=== PATIENT | female | born 1975 | race Hispanic/Latino ===

== ENCOUNTER 2016-12-13 12:01 | Inpatient (IN) | payer MEDICAID ==
[2016-12-13] MEDS ORDERED: LACTATED RINGERS 500 ML IV ONE (12:20)
[2016-12-13] MEDS ORDERED: LACTATED RINGERS 1,000 ML ONE ×2 (13:16→17:53)
[2016-12-13 13:35] LABS: Basophils % (Auto) 0.3 % (0.0-1.8); Eosinophils % (Auto) 0.4 % (0.0-4.3); Hematocrit 30.2 % (30.3-42.9); Hemoglobin 10.3 gm/dl (10.1-14.3); Mean Corpuscular HGB Conc 34 % (30-34); Mean Corpuscular Hemoglobin 30 pg (28-32); Mean Corpuscular Volume 87 fl (79-97); Platelet Count 171 K/mm3 (140-440); Red Blood Count 3.47 M/mm3 (3.65-5.03); Red Cell Distribution Width 12.9 % (13.2-15.2); White Blood Count 12.5 K/mm3 (4.5-11.0)
[2016-12-13] MEDS ORDERED: COLACE PO PRN (14:01)
[2016-12-13] MEDS ORDERED: AMBIEN PO PRN (14:01)
[2016-12-13] MEDS ORDERED: ALUM-MAG HYDROX-SIMETH 200-200-20MG/5ML PO PRN (14:01)
[2016-12-13] MEDS ORDERED: BENADRYL PO PRN (14:01)
[2016-12-13] MEDS ORDERED: MILK OF MAGNESIA PO PRN ×2 (14:01→21:57)
[2016-12-13] MEDS ORDERED: MYLICON PO PRN ×2 (14:01→21:57)
[2016-12-13] MEDS ORDERED: TYLENOL PO PRN (14:01)
[2016-12-13] MEDS ORDERED: SENOKOT S PO PRN (14:01)
[2016-12-13] MEDS ORDERED: ZOFRAN IV PRN (14:01)
[2016-12-13] MEDS ORDERED: MAGNESIUM SULFATE 4GM/100ML 4 GM/100 ML BAG IV ONE (14:06)
[2016-12-13] MEDS ORDERED: MAGNESIUM SULFATE 40GM/1000ML 40 GM/1,000 ML BAG IV SCH (15:00)
[2016-12-13] MEDS ORDERED: CELESTONE SOLUSPAN IM SCH (15:00)
--- NOTE | 2016-12-13 16:38 | History and Physical Report ---
History of Present Illness Date of examination: 12/13/16 (pt presents today with a reoccurrence of vaginal bleeding in the 3rd trimester) Chief complaint: vaginal bleeding History of present illness: this is a 41yo @ approx 33-35 weeks gestation. Pt has a prior hx of 3 sections. 1st pre section due to distress; complicated by GDM 2nd pre planned repeat c/s; denies complications 3rd pre planned repeat c/s; denies complications Pt states she has been receiving care with [facility] and was having her US @ [facility]. Pt is having her bring her records. Past History Family/Genetic History: diabetes (father), heart disease (father), hypertension (father), stroke (father) - Obstetrical History Expected Date of Delivery: 01/21/17 Actual Gestation: 34 Week(s) 3 Day(s) : 4 Para: 3 (all sections) Hx # Term Pregnancies: 3 Number of Living Children: 3 Medications and Allergies Allergies Allergy/AdvReac Type Severity Reaction Status Date / Time No Known Allergies Allergy Verified 12/13/16 12:18 Home Medications Medication Instructions Recorded Confirmed Last Taken Type Caplet 1 tab PO DAILY 12/13/16 12/13/16 1 Day Ago History Active Meds: Active Medications Acetaminophen (Tylenol) 650 mg PO Q4H PRN PRN Reason: Pain MILD(1-3)/Fever >100.5/BALLARD Al Hydrox/Mg Hydrox/Simethicone (Alum-Mag Hydrox-Simeth [id number]/5ml) 30 ml PO Q6H PRN PRN Reason: Indigestion Betamethasone Acet/Betameth SodPhos (Celestone Soluspan) 12 mg IM Q24HR RHINA Stop: 12/14/16 10:01 Last Admin: 12/13/16 16:16 Dose: 12 mg Diphenhydramine HCl (Benadryl) 25 mg PO Q6H PRN PRN Reason: Itching Docusate Sodium (Colace) 100 mg PO Q12H PRN PRN Reason: Constipation Magnesium Sulfate (Magnesium Sulfate 40gm/1000ml) 40 gm in 1,000 mls @ 50 mls/ hr IV DIRECT RHINA PRN Reason: 2 GM/HR Magnesium Sulfate (Magnesium Sulfate 4gm/100ml) 4 gm in 100 mls @ 200 mls/hr IV ONCE ONE Stop: 12/13/16 14:35 Last Admin: 12/13/16 16:13 Dose: 25 mls/hr Influenza Virus Vaccine Quadrival (Fluarix Quad 0468-4218(36 Mos+)) 60 mcg IM .ONCE ONE Stop: 12/14/16 12:01 Magnesium Hydroxide (Milk Of Magnesia) 30 ml PO QHS PRN PRN Reason: Laxative Effect Multivitamins/Iron/Calcium ( Vitamin) 1 each PO QDAY RHINA Ondansetron HCl (Zofran) 4 mg IV Q6H PRN PRN Reason: Nausea And Vomiting Senna/Docusate Sodium (Senokot S) 2 tab PO Q12H PRN PRN Reason: Laxative Effect Simethicone (Mylicon) 80 mg PO Q6H PRN PRN Reason: Gas pain Zolpidem Tartrate (Ambien) 10 mg PO ONCE PRN PRN Reason: Sleep - Vital Signs Vital signs: Vital Signs Temp Pulse Resp 97.9 F 99 H 14 12/13/16 12:36 12/13/16 12:36 12/13/16 12:36 Temp Pulse Resp BP Pulse Ox 97.9 F 99 H 14 12/13/16 12:36 12/13/16 12:36 12/13/16 12:36 - Physical Exam Breasts: Positive: deferred Cardiovascular: Regular rate, Normal S1, Normal S2 Lungs: Positive: Normal air movement Abdomen: Positive: normal appearance, soft, normal bowel sounds. Negative: distention, tenderness Genitourinary (Female): Positive: normal external genitalia, normal perenium Vulva: both: normal Vagina: Positive: normal moisture, other (slow trickle of bleeding noted). Negative: discharge Cervix: Negative: lesion, discharge Uterus: Positive: normal size, normal contour Adnexa: both: normal Anus/Rectum: Positive: normal perianal skin, heme negative. Negative: rectal mass, hemorrhoids Extremities: Positive: normal Deep Tendon Reflex Grade: Normal +2 - Obstetrical FHR: category 1 Uterine Contraction Monitor Mode: External Uterine Contraction Frequency (min): q8min Uterine Contraction Duration: 40 Uterine Contraction Pattern: Irregular Uterine Contraction Intensity: Mild Results Result Diagrams: 12/13/16 13:05 12/13/16 16:16 Abnormal lab results 12/13/16 Range/Units 13:05 WBC 12.5 H (4.5-11.0) K/mm3 RBC 3.47 L (3.65-5.03) M/mm3 Hct 30.2 L (30.3-42.9) % RDW 12.9 L (13.2-15.2) % Lymph % (Auto) 7.3 L (13.4-35.0) % [place] % (Auto) 8.8 H (0.0-7.3) % Lymph # 0.9 L (1.2-5.4) K/mm3 [place] # 1.1 H (0.0-0.8) K/mm3 Seg Neutrophils % 83.2 H (40.0-70.0) % Seg Neutrophils # 10.4 H (1.8-7.7) K/mm3 All other labs normal. Assessment and Plan - Patient Problems (1) Vaginal bleeding in Onset Date: ~12/09/16 Current Visit: Yes Status: Acute Qualifiers: Trimester: third trimester Qualified Code(s): O46.93 - Antepartum hemorrhage, unspecified, third trimester Plan to address problem: Pt gives hx of large amt of bright red vaginal bleeding that started on 12-09-16 There was not a precipitating factor. Pt went to [facility] where she had an US. The results of that US are on her chart - pt brought a hard copy with her. Bleeding "has never completely stopped" But was more today and pt came to [facility] to be evaled. (2) 34 weeks gestation of Onset Date: ~12/13/16 Current Visit: Yes Status: Acute Plan to address problem: US done here today shows vertex presentation; no evidence abruption; cervical length of 4.3; MELI 11.3; EFW 5-6; US EGA 34w0d EDC by clinical age 517 Deferred SVE due to moderate bleeding aware of pt's admission
[2016-12-13 16:54] LABS: Alanine Aminotransferase 12 units/L (7-56); Albumin 2.8 g/dL (3.9-5); Alkaline Phosphatase 138 units/L (35-129); Bilirubin,Total 0.3 mg/dL (0.1-1.2); Blood Urea Nitrogen 5 mg/dL (7-17); Calcium 8.3 mg/dL (8.4-10.2); Carbon Dioxide 20 mmol/L (22-30); Glucose 88 mg/dL (65-100); Total Protein 5.6 g/dL (6.3-8.2)
[2016-12-13 16:55] LABS: Anion Gap 17 mmol/L; Chloride 100.1 mmol/L (98-107); Potassium 3.9 mmol/L (3.6-5.0); Sodium 133 mmol/L (137-145)
[2016-12-13 17:21] LABS: Urine Drugs of Abuse Note Disclamer
[2016-12-13 17:28] LABS: Bilirubin,Urine NEG (Negative); Blood,Urine SM (Negative); Ketones,Urine NEG (Negative); Leukocyte Esterase,Urine NEG (Negative); Mucus,Urine FEW /HPF; Nitrite,Urine NEG (Negative); Protein,Urine <15 mg/dL mg/dL (Negative); Urobilinogen,Urine < 2.0 mg/dL (<2.0); WBC,Urine < 1.0 /HPF (0.0-6.0)
[2016-12-13] MEDS ORDERED: PITOCin/NS 20 UNIT/1000ML DRIP 20,000 MILLIUNITS/1,000 ML BAG IV ONE (17:55)
[2016-12-13] MEDS ORDERED: BICITRA PO ONE (17:56)
[2016-12-13] MEDS ORDERED: PEPCID IV ONE (17:56)
[2016-12-13] MEDS ORDERED: REGLAN IV ONE (17:56)
[2016-12-13] MEDS ORDERED: ANCEF/STERILE WATER 2 GM/20 ML 2 GM/20 ML SYRINGE IV NR (18:00)
[2016-12-13] MEDS ORDERED: LACTATED RINGERS 1,000 ML IV SCH (18:00)
[2016-12-13] MEDS ORDERED: PITOCin 20 UNIT in NACL 0.9% 1000 ML 998 ML IV SCH (18:00)
--- NOTE | 2016-12-13 18:07 | Event Note ---
Date: 12/13/16 (received call from ) Report given Ctx increasing freq Q2 min, bleeding minimal ,FHR Cat 1. Decision to move forward with repeat section. Pt made aware of decision. Consents signed. Pt aware of risks. She understands that the concern is for uterine rupture, occult previa, unknown location of bleeding. At this time the fetus has a Cat 1 strip. Pt agrees to go forward with section Preop orders in EMR Dr.Youngblood mora.
[2016-12-13] MEDS ORDERED: MORPHINE ONE (19:00)
[2016-12-13] MEDS ORDERED: VERSED ONE (19:00)
[2016-12-13] MEDS ORDERED: WATER FOR IRRIG STERILE IR ONE (19:20)
[2016-12-13] MEDS ORDERED: NACL 0.9% IR ONE (19:20)
--- NOTE | 2016-12-13 20:04 | Operative Report ---
Operative Report Operative Report: Date of procedure: 12/13/2016 Pre-operative diagnosis: Intrauterine at 34 weeks, previous section 3, consistent contractions with vaginal bleeding and very limited care Post-operative diagnosis: Same plus early placental abruption Procedure name(s): Repeat low transverse section Surgeon: Magan Blair MD Medical Research Tech: Ghada Dias certified nurse practitioner and sprayer insecticide Anesthesia: Spinal EBL: 500 mL Complications: None Findings: Patient with normal uterus and adnexa bilaterally. Female infant weight 5 lbs. 2 oz. Apgars 8 at 1 minute and 9 at 5 minutes. Patient did have blood clots and uterus consistent with probable early placenta abruption Specimen(s): Placenta Procedure: The patient was brought to the operating room. A spinal was placed without any complications. She was then placed in left lateral tilt. Prepped and draped in the usual sterile manner. After testing for adequate anesthesia level, a Pfannenstiel incision was made through her previous scar. This incision was taken down to the fascia. The fascia was then nicked in the midline. This incision was extended out laterally with Lopez scissors. The fascia was then sharply and bluntly from the underlying rectus muscles. The rectus muscles were bluntly and sharply . The peritoneum was then entered with the degreaser operator's fingers. This incision was spread vertically with care not to damage the bladder below. The bladder flap was then formed sharply and bluntly with Metzenbaum scissors. Bladder blade was placed. A transverse incision was made in lower uterine segment. This incision was extended laterally with the operators fingers. The amniotic sac was then entered bluntly with the degreaser operator's fingers. The was delivered from the vertex position. Bulb suction on the mother's abdomen. Cord was double clamped and cut. The infant was then passed to the nursery personnel who were in attendance. The above scores were given by the nursery personnel. The placenta was then bluntly removed. The uterus was then externalized and wiped clean the remaining products. The uterine incision was closed in layers. The first incision was closed in a locking manner using 0 Vicryl. This was followed by imbricating stitch also with 0 Vicryl. This closure was hemostatic. The bladder flap was copiously irrigated and found to be hemostatic. The pelvis was copiously irrigated and found to be hemostatic. The uterus was then placed back to the patient's abdomen. The retractors were removed. The rectus muscles were inspected and found to be hemostatic. The fascia was then closed in a running manner using 0 Vicryl. This incision was hemostatic irrigation Bovie. The skin was reapproximated with 4-0 Vicryl subcuticularly. The patient tolerated procedure well. Her urine was clear. The infant was admitted to the [well baby] nursery. The patient was accompanied to recovery room in good condition. Instrument count correct 3
[2016-12-13] MEDS ORDERED: DILAUDID IV PRN (20:18)
[2016-12-13] MEDS ORDERED: PHENERGAN PR PRN (20:18)
[2016-12-13] MEDS ORDERED: PHENERGAN PO PRN (20:18)
[2016-12-13] MEDS ORDERED: NARCAN 0.4 MG/1 ML IV PRN ×2 (20:18→21:57)
--- NOTE | 2016-12-13 20:18 | Post Anesthesia Evaluation ---
- Post Anesthesia Evaluation Patient Participated: Yes Airway Patent: Yes Stable Respiratory Function: Yes Temp > 96.8F: Yes Pain Manageable: Yes Adequeate Hydration: Yes Anesthesia Complications: No Block Receding Appropriately: Yes
--- NOTE | 2016-12-13 20:18 | Anesthesia Consultation ---
Anesthesia Consult and Med Hx Date of service: 12/13/16 - Airway Anesthetic Teeth Evaluation: Good ROM Head & Neck: Adequate Mental/Hyoid Distance: Adequate Mallampati Class: Class II Intubation Access Assessment: Probably Good - Pulmonary Exam CTA: Yes - Cardiac Exam Cardiac Exam: RRR - Pre-Operative Health Status ASA Pre-Surgery Classification: ASA3, Emergency Proposed Anesthetic Plan: Spinal - Pulmonary Hx Asthma: No COPD: No Hx Pneumonia: No - Cardiovascular System Hx Hypertension: No - Central Nervous System Hx Seizures: No Hx Psychiatric Problems: No - Endocrine Hx Renal Disease: No Hx End Stage Renal Disease: No Hx Hypothyroidism: No Hx Hyperthyroidism: No - Hematic Hx Anemia: Yes Hx Sickle Cell Disease: No - Other Systems Hx Alcohol Use: No Hx Substance Use: Yes (pos cocaine screen)
--- NOTE | 2016-12-13 20:18 | Anesthesia Day of Surgery ---
Anesthesia Day of Surgery - Day of Surgery Patient Examined: Yes Patient H&P Reviewed: Yes Patient is NPO: Yes (FSP)
[2016-12-13 20:26] LABS: HIVR-1/2 Ab Non React (Non React)
[2016-12-13 20:27] LABS: HIV-1 Antigen p24 Non React (Non React)
[2016-12-13] MEDS ORDERED: TUCKS PAD TP PRN (21:57)
[2016-12-13] MEDS ORDERED: SODIUM CHLORIDE FLUSH SYRINGE 10 ML IV PRN (21:57)
[2016-12-13] MEDS ORDERED: D5LR 1,000 ML IV SCH (21:57)
[2016-12-13] MEDS ORDERED: LANSINOH TP PRN (21:57)
[2016-12-14] MEDS: ANCEF/NS 1 GM/50 ML 1 GM/50 ML BAG IV SCH ×2 (01:59→10:30)
[2016-12-14] MEDS: MOTRIN PO PRN ×2 (08:00→19:28)
[2016-12-14] MEDS: NORCO 5/325 PO PRN ×2 (08:00→19:27)
--- NOTE | 2016-12-14 08:01 | Ultrasound Report ---
BIOPHYSICAL PROFILE: INDICATION: Vaginal bleeding. COMPARISON: None similar at this institution. TECHNIQUE: Transabdominal ultrasound with Doppler interrogation. 0 - breathing movements 2 - movements 2 - posture and tone 2 - Qualitative amniotic fluid volume 6 - TOTAL SCORE OF POSSIBLE 8 Heart Rate (bpm) 145
[2016-12-14 08:26] LABS: Hematocrit 32.1 % (30.3-42.9)
[2016-12-14] MEDS: FEOSOL PO SCH (10:00)
[2016-12-14] MEDS ORDERED: PRENATAL VITAMIN PO SCH (10:00)
--- NOTE | 2016-12-14 11:31 | Ultrasound Report ---
OB ULTRASOUND GREATER THAN 14 WEEKS - TRANSABDOMINAL AND TRANSVAGINAL INDICATION: Vaginal bleeding. COMPARISON: None similar. TECHNIQUE: Transabdominal grayscale ultrasound with Doppler interrogation. Few endovaginal images to evaluate the cervix also performed. Gestation: [place] Position: Cephalic Amniotic Fluid: WNL (7-24 cm) MELI = 11.3 cm Placenta: Anterior; no evidence of abruption. Placental Grade: I Heart Rate: 144 BPM Cervical length: 4.3 cm (Normal > 3 cm); some endocervical fluid noted. NEUROANATOMY VISUALIZED: Choroid Plexus Lateral Ventricle ANATOMY VISUALIZED: Stomach Kidneys Bladder Diaphragm 4 Chamber Heart Heart 3 Vessel Cord Abd. Cord Insert SPINE VISUALIZED: Longitudinal Transverse BPD: 8.1 cm = 32 w 5 d HC: 30.4 cm = 33 w 6 d AC: 31.3 cm = 35 w 2 d FL: 6.6 cm = 34 w 0 d HC/AC Ratio: 0.97 Cephalic Index: 79.3 Estimated Weight: 2440 grams Clinical age = 34 w 3 d EDC: 01/21/2017 US Gest. Age = 34 w 0 d EDC: 01/24/2017 CONCLUSION: Single, viable intrauterine gestation with ultrasound estimated age of 34 weeks and zero days and EDC of 01/24/2017, currently in cephalic lie with details and few other findings, as above. Please correlate. Thank you for the opportunity to participate in this patient's care.
--- NOTE | 2016-12-14 11:56 | Progress Note ---
Assessment and Plan - Patient Problems (1) delivery delivered Current Visit: Yes Status: Acute Plan to address problem: Postoperative day #1. Discuss operative findings with patient and questions answered. Patient without fever. We'll ambulate in halls. We will continue routine postoperative care. Patient's postoperative hematocrit (2) 34 weeks gestation of Onset Date: ~12/13/16 Current Visit: Yes Status: Acute (3) Insufficient care Current Visit: Yes Status: Acute Qualifiers: Trimester: third trimester Qualified Code(s): O09.33 - Supervision of with insufficient care, third trimester (4) Previous section Current Visit: Yes Status: Chronic Subjective - Subjective Date of service: 12/14/16 Principal diagnosis: postoperative day one section Patient reports: appetite normal, voiding normally, pain well controlled, ambulating normally [place]: in NICU Objective - Vital Signs Latest vital signs: Vital Signs Temp Pulse Pulse Pulse Resp BP BP 12/14/16 07:33 98.0 F 84 20 114/50 12/14/16 05:30 98.2 F 94 H 20 12/14/16 02:05 97.6 F 72 18 12/13/16 21:45 69 20 12/13/16 21:10 91 H 14 108/62 12/13/16 20:51 87 10 L 106/44 12/13/16 20:30 93 H 12 112/48 12/13/16 20:15 96 H 12 108/52 12/13/16 20:08 97.5 F L 91 H 18 108/45 12/13/16 18:48 103 H 12/13/16 18:43 98 H 12/13/16 18:38 105 H 12/13/16 18:36 93 H 126/60 12/13/16 18:33 104 H 12/13/16 18:30 97.8 F 12/13/16 18:28 106 H 12/13/16 18:23 98 H 12/13/16 18:18 102 H 12/13/16 18:13 102 H 12/13/16 18:10 103 H 12/13/16 18:08 100 H 12/13/16 18:05 92 H 12/13/16 18:03 105 H 12/13/16 17:58 102 H 12/13/16 17:43 95 H 12/13/16 17:38 98 H 12/13/16 17:33 95 H 12/13/16 17:28 92 H 12/13/16 17:23 91 H 12/13/16 17:21 90 118/56 12/13/16 17:18 89 12/13/16 17:13 89 12/13/16 17:08 89 12/13/16 17:06 88 122/61 12/13/16 17:03 90 12/13/16 16:58 91 H 12/13/16 16:55 88 12/13/16 16:53 93 H 12/13/16 16:50 96 H 116/59 12/13/16 16:48 95 H 12/13/16 16:47 93 H 120/59 12/13/16 16:43 98 H 12/13/16 16:38 91 H 12/13/16 16:33 97.7 F 99 H 94 H 20 103/51 12/13/16 12:36 97.9 F 99 H 14 BP Pulse Ox 12/14/16 07:33 12/14/16 05:30 104/56 12/14/16 02:05 106/54 12/13/16 21:45 115/62 12/13/16 21:10 95 12/13/16 20:51 94 12/13/16 20:30 93 12/13/16 20:15 95 12/13/16 20:08 95 12/13/16 18:48 93 12/13/16 18:43 94 12/13/16 18:38 93 12/13/16 18:36 12/13/16 18:33 94 12/13/16 18:30 12/13/16 18:28 93 12/13/16 18:23 94 12/13/16 18:18 93 12/13/16 18:13 94 12/13/16 18:10 88 12/13/16 18:08 92 12/13/16 18:05 91 12/13/16 18:03 93 12/13/16 17:58 93 12/13/16 17:43 93 12/13/16 17:38 97 12/13/16 17:33 95 12/13/16 17:28 94 12/13/16 17:23 92 12/13/16 17:21 12/13/16 17:18 95 12/13/16 17:13 92 12/13/16 17:08 94 12/13/16 17:06 12/13/16 17:03 94 12/13/16 16:58 94 12/13/16 16:55 94 12/13/16 16:53 94 12/13/16 16:50 12/13/16 16:48 94 12/13/16 16:47 12/13/16 16:43 92 12/13/16 16:38 93 12/13/16 16:33 103/51 94 12/13/16 12:36 Intake and Output 12/13/16 12/14/16 12/14/16 22:59 06:59 14:59 Intake Total 1125 1360 360 Output Total 750 1000 Balance 375 360 360 Intake: IV 1125 1000 D5lr 1,000 ml @ 125 mls/ 125 hr IV DIRECT RHINA Rx#: [id number] PITOCin 20 UNIT In NaCl 0 125 875 .9% 1000 ml 998 ml @ As Directed IV TITR RHINA Rx#: [id number] Oral 360 Intake, Free Water 360 Output: Urine 750 1000 Indwelling Catheter 1000 Uretheral ([place]) 500 Other: Total, Intake Amount 360 Total, Output Amount 1000 Estimated Blood Loss 500 - Exam Breasts: Present: deferred Cardiovascular: Present: Regular rate Lungs: Present: Normal air movement Abdomen: Present: soft Uterus: Present: normal, firm Extremities: Present: edema (at IV site) Incision: Present: dressed - Labs Labs: Abnormal lab results 12/13/16 12/13/16 Range/Units 13:05 16:16 WBC 12.5 H (4.5-11.0) K/mm3 RBC 3.47 L (3.65-5.03) M/mm3 Hct 30.2 L (30.3-42.9) % RDW 12.9 L (13.2-15.2) % Lymph % (Auto) 7.3 L (13.4-35.0) % [place] % (Auto) 8.8 H (0.0-7.3) % Lymph # 0.9 L (1.2-5.4) K/mm3 [place] # 1.1 H (0.0-0.8) K/mm3 Seg Neutrophils % 83.2 H (40.0-70.0) % Seg Neutrophils # 10.4 H (1.8-7.7) K/mm3 Sodium 133 L (137-145) mmol/L Carbon Dioxide 20 L (22-30) mmol/L BUN 5 L (7-17) mg/dL Creatinine 0.4 L (0.7-1.2) mg/dL Calcium 8.3 L (8.4-10.2) mg/dL Alkaline Phosphatase 138 H (35-129) units/L Total Protein 5.6 L (6.3-8.2) g/dL Albumin 2.8 L (3.9-5) g/dL
[2016-12-14] MEDS ORDERED: FLUARIX QUAD 2016-2017(36 MOS+) IM ONE (12:00)
[2016-12-15] MEDS: MOTRIN PO PRN ×2 (01:29→08:11)
[2016-12-15] MEDS: NORCO 5/325 PO PRN ×3 (01:29→11:49)
--- NOTE | 2016-12-15 07:44 | Progress Note ---
Assessment and Plan Patient sleeping soundly, patient awakened only by shaking patient's arm repeatedly. She reports "doing too much" yesterday and having a "rough night." Incision D&I, VSSAF, Lochia scant. postop H&H stable. Patient states she will f/ u with her previous provider for incision check and care (Pt does not know the name of her provider this morning, no records have been received after request faxed to [facility], only u/s reports from [facility].) Will provide our office information for patient to f/u 1 week for incision check. to remain in NICU. - Patient Problems (1) Amphetamine abuse Current Visit: Yes Status: Acute Plan to address problem: DFACS referral made (2) delivery delivered Current Visit: Yes Status: Acute Plan to address problem: f/u 1 week for incision check Subjective - Subjective Date of service: 12/15/16 Principal diagnosis: postop day #2 s/p repeat c/s, + Amphetamines Patient reports: appetite normal, voiding normally, pain well controlled, flatus , ambulating normally, no dizzy ambulation, no nauseated : in NICU Objective - Vital Signs Latest vital signs: Vital Signs Temp Pulse Resp BP BP 12/15/16 00:00 98.6 F 76 16 120/74 12/14/16 17:00 97.9 F 88 20 124/64 12/14/16 11:35 98.3 F 76 18 120/74 Intake and Output 12/14/16 12/15/16 12/15/16 22:59 06:59 14:59 Intake Total 750 Output Total 200 Balance -200 750 Intake: Oral 400 Intake, Free Water 350 Output: Urine 200 Void 200 Other: Total, Intake Amount 400 Total, Output Amount 200 - Exam Breasts: Present: normal Cardiovascular: Present: Regular rate Lungs: Present: Clear to auscultation, Normal air movement Abdomen: Present: normal appearance, soft, normal bowel sounds Vulva: both: normal Uterus: Present: normal, firm, fundal height at umbilicus Extremities: Present: normal Deep Tendon Reflex Grade: Normal +2 Incision: Present: normal, dry, intact
--- NOTE | 2016-12-15 07:49 | Discharge Summary ---
Providers - Providers Date of Admission: 12/13/16 14:01 Date of discharge: 12/15/16 Attending physician: OSMIN PERRY 12/13/16 21:57 Consult to Case Management [CONS] Routine Services Needed at Discharge: Geriatric Nurse Practitioner Notified:: YES Phone number called:: [phone] Was contact made?: Yes If yes, spoke with:: PANTERA Time called:: 11:10 Primary care physician: GRINDER OPERATOR Hospitalization Reason for admission: IUP - , vaginal bleeding Delivery: Procedure: repeat low transverse Episiotomy: none Laceration: none Incision: normal, dry, intact Other procedures: none complications: none Discharge diagnosis: delivery (34 weeks) baby: female Hospital course: uncomplicated c/s delivery @ 34 weeks for vaginal bleeding, insufficient care. Condition at discharge: Good Disposition: DISCHARGED TO HOME OR SELFCARE - Discharge Diagnoses (1) Amphetamine abuse Status: Acute (2) delivery delivered Status: Acute Plan - Discharge Medications Prescriptions: Ferrous Sulfate [Feosol 325 MG tab] 325 mg PO BID #60 tablet Ibuprofen [Motrin 800 MG tab] 800 mg PO Q6H PRN #30 tablet PRN Reason: Pain oxyCODONE /ACETAMINOPHEN [Percocet 5/325 mg] 1 - 2 tab PO Q4H PRN #30 tablet PRN Reason: Pain, Moderate - Provider Discharge Summary Activity: routine, no sex for 6 weeks, no heavy lifting 4 weeks, no strenuous exercise Diet: routine Instructions: routine Additional instructions: [] Smoking cessation referral if applicable(refer to patient education folder for contact #) [] Refer to [facility]'s [facility] Booklet Call your doctor immediately for: * Fever > 100.5 * Heavy vaginal bleeding ( >1 pad per hour) * Severe persistent headache * Shortness of breath * Reddened, hot, painful area to leg or breast * Drainage or odor from incision. * Keep incision clean and dry at all times and follow doctor's instructions regarding bathing/showering - Follow up plan Follow up: PRIMARY CARE, [Primary Care Provider] - 7 Days LILO JOY CNM [Advanced Practice Nurse] - 7 Days (Congratulations. Please call [phone] to schedule a your incision check in 1 week. Call for any questions or concerns. )
[2016-12-15] MEDS ORDERED: DEPO-PROVERA (CONTRACEPTION) IM NR (08:30)
[2016-12-15] MEDS: FEOSOL PO SCH (11:50)
[2016-12-15] MEDS ORDERED: FLUARIX QUAD 2016-2017(36 MOS+) IM ONE (12:15)
[2016-12-15 13:42] VITALS: BP 130/60
== END 2016-12-15 14:45 | disposition home or self-care (01) | DRG 765 ==
LOC: TRG 12:01 → LD 14:01 → OB 21:18
PROVIDERS: ADMIT Obstetrics & Gynecology; ATTEND Obstetrics & Gynecology
PROC: 10D00Z1 Extraction of Products of Conception, Low, Open Approach (ICD-10-PCS; principal; 2016-12-13)
DX: O60.14X0 Preterm labor third trimester with preterm delivery third trimester, not applicable or unspecified (principal); O45.93 Premature separation of placenta, unspecified, third trimester; O99.324 Drug use complicating childbirth; O34.211 Maternal care for low transverse scar from previous cesarean delivery; O75.89 Other specified complications of labor and delivery; F15.10 Other stimulant abuse, uncomplicated; O09.33 Supervision of pregnancy with insufficient antenatal care, third trimester; Z3A.34 34 weeks gestation of pregnancy; Z37.0 Single live birth
CPT/HCPCS: 36415; 76805; 76819; 80053; 80307; 81001; 85014; 85018; 85025; 85660; 86592; 86705; 86706; 86762; 86803; 86850; 86900; 86901; 87806; 88307; 90471; 90686; 99406; C1765; G0008; J0690; J0702; J1050; J1170; J2250; J2270; J2590; J2765; J3475; J7120; J7121